=== PATIENT | male | born 2000 | race Caucasian/White ===

== ENCOUNTER 2019-01-25 17:15 | Inpatient (IN) | payer OTHER ==
[2019-01-25] MEDS ORDERED: Nicotine Inhaler* 10 MG AMP INH PRN (17:35)
--- NOTE | 2019-01-25 17:49 | ED ---
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 Pt says he saw a counselor and psychiatrist today. He has had previous suicide attempt ( by ropahmet). He is a [employer] student, majoring in [employer]. Denies PMHx other than depression. He is not on medications for depression. - History Of Current Complaint Chief Complaint: EDSuicidal Time Seen by Provider: 01/25/19 17:35 Hx Obtained From: Patient Onset/Duration: Still Present Timing: Constant Severity Initially: Moderate Severity Currently: Moderate Character: Depressed Related History: Positive For: Prior Psychiatric Issues Has Suicidal: Reports: Thoughts. Denies: With A Plan - Allergies/Home Medications Allergies/Adverse Reactions: Allergies Allergy/AdvReac Type Severity Reaction Status Date / Time No Known Allergies Allergy Verified 01/25/19 17:27 Home Medications: Home Medications NK [No Home Medications Reported] 01/25/19 [History Confirmed 01/25/19] PMH/Surg Hx/FS Hx/Imm Hx Previously Healthy: No Endocrine/Hematology History: Denies: Hx Diabetes Sensory History: Denies: Hx Legally Blind Neurological History: Denies: Hx Dementia Psychiatric History: Reports: Hx Depression Infectious Disease History: No Infectious Disease History: Reports: Traveled Outside the [place] in Last 30 Days - Social History Occupation: Student Lives: With Family Alcohol Use: None Hx Substance Use: No Substance Use Type: Reports: None Hx Tobacco Use: No Smoking Status (MU): Never Smoked Tobacco Review of Systems Negative: Fever Negative: Cough Psychological: Other - pos: SI without plan All Other Systems Reviewed And Are Negative: Yes Physical Exam - Summary Physical Exam Summary: GENERAL: Patient is a well-developed and nourished MALE who is lying comfortable in the stretcher. Patient is not in any acute respiratory distress. HEAD AND FACE: Normocephalic EYES: PERRLA, EOMI x 2. EARS: Hearing grossly intact. MOUTH: Oropharynx within normal limits. NECK: Supple, trachea is midline, no adenopathy, no JVD, no carotid bruit. CHEST: Symmetric, no tenderness at palpation LUNGS: Clear to auscultation bilaterally. No wheezing or crackles. CVS: Regular rate and rhythm, S1 and S2 present, no murmurs or gallops appreciated. ABDOMEN: Soft, non-tender. Bowel sounds are normal. No abdominal abnormal pulsations. EXTREMITIES: Full ROM in all major joints, no edema, no cyanosis or clubbing. NEURO: Alert and oriented x 3. No acute neurological deficits. Speech is normal and follows commands. SKIN: Dry and warm PSYCH: Suicidal. Triage Information Reviewed: Yes Vital Signs On Initial Exam: Initial Vitals Temp Pulse Resp BP Pulse Ox 97.6 F 65 18 124/70 100 01/25/19 17:21 01/25/19 17:21 01/25/19 17:21 01/25/19 17:21 01/25/19 17:21 Vital Signs Reviewed: Yes Diagnostics - Vital Signs Vital Signs Temp Pulse Resp BP Pulse Ox 01/25/19 17:21 97.6 F 65 18 124/70 100 - Laboratory Result Diagrams: 01/25/19 17:56 01/25/19 17:56 Lab Statement: Any lab studies that have been ordered have been reviewed, and results considered in the medical decision making process. 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 Pt says he saw a counselor and psychiatrist today. Pt is medically clear for MHE at 1900. 2007 : Per registered nurse nursery: Pt will be involuntarily admitted, per Dr. Lai, psych. Dx : unspecified depression. - Differential Dx/Clinical Impression Provider Diagnosis: Depression Discharge - Sign-Out/Discharge Documenting (check all that apply): Patient Departure - BHU ADMIT Patient Received Moderate/Deep Sedation with Procedure: No - Discharge Plan Condition: Stable Disposition: [place]CHIATRIC [place]AC[place] [place]illing Disposition and Condition Condition: STABLE Disposition: Psychiatric Facility [facility] [place] - Attestation Statements Document Initiated by Scribe: Yes Documenting Scribe: Ondina Diaz Provider For Whom Scribe is Documenting (Include Credential): Dr. Sascha Sorenson MD Scribe Attestation: Ondina Ann, scribed for Dr. Sascha Sorenson MD on 01/25/19 at 2128. Scribe Documentation Reviewed: Yes Provider Attestation: The documentation as recorded by the Ondina bolanos accurately reflects the service I personally performed and the decisions made by me, Dr. Sascha Sorenson MD Status of Scribe Document: Viewed
[2019-01-25 18:05] LABS: ABS Basophils 0 10^3/ul (0-0.2); ABS Eosinophils 0.1 10^3/ul (0-0.6); ABS Lymphocytes 1.6 10^3/ul (1.0-4.8); ABS Monocytes 0.4 10^3/ul (0-0.8); ABS Neutrophils 2.4 10^3/ul (1.5-7.7); ABS Nucleated RBC 0 10^3/ul; Eosinophil % 1.4 %; Hematocrit 41 % (36-46); Hemoglobin 14.4 g/dL (14.0-18.0); Lymphocyte % 36.2 %; Mean Corpuscular HGB Conc 35 g/dL (31-36); Mean Corpuscular Hemoglobin 31 pg (27-31); Mean Corpuscular Volume 89 fL (80-94); Mean Platelet Volume 7.9 fL (7.4-10.4); Nucleated Red Blood Cells % 0.1; Platelet Count 212 10^3/uL (150-450); Red Blood Count 4.64 10^6 /uL (4.18-5.48); Red Cell Distribution Width 13 % (10.5-15); White Blood Count 4.5 10^3/uL (3.5-10.8)
[2019-01-25 18:22] LABS: ALT 12 U/L (7-52); AST 16 U/L (13-39); Albumin/Globulin Ratio 2.3 (1-3); Alkaline Phosphatase 72 U/L (34-104); Anion Gap 6 mmol/L (2-11); BUN/Creatinine Ratio 22.7 (8-20); Blood Urea Nitrogen 17 mg/dL (6-24); CO2 Carbon Dioxide 28 mmol/L (22-32); Calcium 9.7 mg/dL (8.6-10.3); Chloride 105 mmol/L (101-111); EGFR African American 159.1 (>60); EGFR Non-African American 131.5 (>60); Globulin 2.2 g/dL (2-4); Glucose 93 mg/dL (70-100); Potassium 3.9 mmol/L (3.5-5.0); Sodium 139 mmol/L (135-145); Total Protein 7.2 g/dL (6.4-8.9)
[2019-01-25 18:31] LABS: Alcohol < 10 mg/dL (<10); Salicylate < 2.50 mg/dL (<30)
[2019-01-25 18:39] LABS: Urine Appearance Clear; Urine Bilirubin Negative (Negative); Urine Blood Negative (Negative); Urine Color Yellow; Urine Glucose Negative (Negative); Urine Ketones Negative (Negative); Urine Nitrite Negative (Negative); Urine Protein Negative (Negative); Urine Specific Gravity 1.027 (1.010-1.030); Urine Urobilinogen Negative (Negative)
[2019-01-25 18:46] LABS: TSH (Thyroid Stimulating Horm) 2.35 mcIU/mL (0.34-5.60)
[2019-01-25 18:52] LABS: Acetaminophen < 15 mcg/mL
[2019-01-25 18:55] LABS: Barbiturates Urine Screen None Detected (None Detect); Benzodiazepine Urine Screen None Detected (None Detect); Urine Cannabinoids Screen None Detected (None Detect)
[2019-01-25] MEDS ORDERED: diPHENhydraMINE PO* 50 MG PO PRN (22:19)
[2019-01-25] MEDS ORDERED: Acetaminophen TAB* 325 MG PO PRN (22:19)
[2019-01-25] MEDS ORDERED: Al Hydrox/Mg Hydrox/Simet LIQ* 30 ML UDC PO PRN (22:20)
[2019-01-25] MEDS ORDERED: Mouth Piece, Nicotine* 1 EACH CARTRIDGE INH PRN (22:20)
--- NOTE | 2019-01-26 11:42 | HP ---
H&P (Free Text) History and Physical: Justification for admission: Immediate Safety. CC " I dont know why I am here" The patient was brought to [facility] on the recommendation of his school counselor at [employer]. Patient reported that he went to [facility] counseler and said he was feeling down lately when they questioned him about suicide he said he had a knife and couldnt not promise one way or the other if he was suicidal. He said this was a misunderstanding and that he could not commit to answer about being suicidal or not. Recent stressors include examinations coming up for school and thinking about changing major to business. He reported feeling depressed for the last 2 weeks. Per staff report he had a suicidal plan to jump off [place] or kill himself with a knife. He said that he is upset that he had to come to the hospital. He has not received medications since 2017 were he stopped taking Effexor and experienced nausea and vomiting. He denied access to firearms or stockpiles of medications. He reports getting less sleep lately and having a diminished appetite. The patient denied homicidal ideation intent or plan. The patient denied auditory and/ or visual hallucinations. MDD He reported feeling depressed or having diminished interest in hobbies or interests which were present in the past , for most of the time, lasting more than 2 weeks. Denied having crying spells , feeling empty inside, feelings of hopelessness or worthless. He reported unintentional weight loss or appetite. He reported interruption of sleep or feeling tired throughout the day. He reported loss of energy or lack of motivation to complete tasks. He has decreased concentration. Bipolar Denied symptoms of edgar such as having many ideas at once. Denied increased talkativeness where no one can interrupt. Denied feeling irritable most of the time while having an persistent abundance of energy most of the day without the use of energy drinks, stimulants, or recreational drug use. Denied an increase in intensity in goal directed activities. Denied having the decreased need to sleep for days , having prolonged elevated heighted mood , or feeling on top of the world. Denied impulsive risky sexual encounters. Denied spending money recklessly , going on spending sprees wiping out savings. Denied impulsively traveling out of town or country, having super aranda, and unrealistic wealth or fame. Anxiety Denied having symptoms of anxiety such as having times where heart feels that it is beating out of chest , sweaty palms, or shallow breathing. Denied having uncomfortable or intrusive thoughts. Denied feeling restless, high strung, or worrying too much most of the time. Psychosis Does not endorse hearing things that other people do not hear or seeing things other people do not see. Denied feeling that TV is making references. Denied feeling that people are spying , following , or reading their thoughts. Phobias: Patient denied having excessive fear of a particular thing or situation. Eating disorders: Patient denied having excessive eating habits or feelings of guilt after eating. Denied repeated episodes of self induced vomiting after eating. PTSD Denied flashbacks, nightmares and avoidance of a prior traumatic event. PAST PSYCHIATRIC HISTORY: Prior Diagnosis : Major depressive disorder. Had 2 depressive episodes one in 2016 and one in 2017 treated for 2-3 months and discontinued treatment per recommendation of his doctor at the time. History of past Psychiatric Hospitalizations: No prior psychiatric admission. History of past suicide/homicide attempts : 2 past suicide attempts in 2016 by hanging self with rope that broke and cutting his wrist. Denied past homicidal incidents. Outpatient follow-up: CAPS program at [place] Medications: Past trials of medications include Effexor 75mg BID in 2017 and he abruptly discontinued causing nausea and vomiting which he treated on the medical floor in the hospital FAMILY HISTORY: - Suicide: Denied family history of suicide. - Mental illness: Depression of mother and sister. His sister takes anxiety medications that he is unable to recall. family members. - Substance abuse: Denied substance abuse among family members. SUBSTANCE ABUSE HISTORY: Denied using alcohol, tobacco, heroin and cocaine other illicit substances. Denied abusing pills not prescribed . Denied past Substance abuse treatment. SOCIAL HISTORY: He is single , never no children. He has one brother and one sister and is the middle child. He grew up [place] [facility] [facility]. He describes his childhood as " Good". Denied past physical and or sexual abuse. 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 He is [employer] and engages with protestant orthodox missions. - Legal history: Denied - service history: Denied PAST MEDICAL HISTORY: Denied heart disease, diabetes, cancer and/ or other medical conditions. - Allergies: Denied drug allergies. Physical Exam: Please see ED note Mental Status Exam on Admission APPEARANCE : 19 year old male who appears stated age. Patient is not malodourous, and appears to have fair hygiene and grooming. BEHAVIOR: Cooperative , calm EYE CONTACT: Fair PSYCHOMOTOR ACTIVITY: No psychomotor agitation or retardation. MOVEMENTS: No abnormal movements observed. SPEECH : Normal rate, rhythm, volume and tone. MOOD : " okay" AFFECT : Blunted THOUGHT PROCESS: formulated and organized in a logical, linear goal directed manner. No flight of ideas , neologism (made up words) , perseveration , tangential , loose associations , or circumstantiality. THOUGHT CONTENT: no delusions, preoccupations, obsessions, phobias or preoccupations. PERCEPTION: No current auditory or visual hallucinations. Doesnt appear to be responding to internal cues. No evidence of depersonalization , de-realization, or illusions SUICIDALITY Recent suicidal ideation plan. HOMICIDALITY Denied homicidal ideation, intent or plan. Insight/judgment: Fair insight and judgment ORIENTATION: Oriented to self, location, and time. Diagnosis on Admission: Major Depressive Disorder, severe. Assessment: 19 year old male with history of MDD came to the hospital and was admitted to the BSU at [facility] after endorsing suicidal ideation to counselor at school. Plan #Admit to BSU, Initially given Q15 and later changed to Q30 minute observation with staff pass and computer privileges. Start regular diet. Encourage participation in activities on the milieu. #Patient evaluated in ED and was determined by the emergency room Physician to be medically stable for admission to the BSU. # Justification for Admission: For immediate safety per outlined in the [place] Mental Hygiene Code. # 9.39 The patient requires inpatient admission at this time to assure safety, receive treatment and work toward stabilization. # Labs ordered: CBC, CMP, UDS, TSH, HBA1c, TSH, Toxicology screen, Urine analysis, and lipid profile. # Obtain collateral information once release is signed. # Collaboration with Social Work. #Start Lexapro 10mg PO daily Tentative discharge Tuesday. #Goals before discharge include: Improvement of depression and eradication of suicidal ideation The risks, benefits, and alternative treatment options were discussed as well as of the risks of refusing treatment. After this discussion and an acknowledgement of this understanding was made. A risk/ benefit assessment of treatment was considered and discussed with the patient. When comparing the risks of treatment with the dangers of not receiving treatment, the benefits of treatment outweigh the treatment risks at this time. Risks of suicidal ideation , behavioral changes, movement disorders, cardiac conduction changes, serotonin syndrome, metabolic risks were among some of the risks discussed. Sodium 139 mmol/L (135-145) 01/25/19 17:56 Potassium 3.9 mmol/L (3.5-5.0) 01/25/19 17:56 BUN 17 mg/dL (6-24) 01/25/19 17:56 Creatinine 0.75 mg/dL (0.67-1.17) 01/25/19 17:56 Calcium 9.7 mg/dL (8.6-10.3) 01/25/19 17:56 AST 16 U/L (13-39) 01/25/19 17:56 ALT 12 U/L (7-52) 01/25/19 17:56 Vital Signs Temp Pulse Resp BP Pulse Ox 97.9 F 75 16 123/64 96 01/25/19 21:57 01/25/19 21:57 01/26/19 11:52 01/25/19 21:57 01/25/19 21:57
[2019-01-26] MEDS: Multivitamins/Minerals TAB PO SCH (12:34)
[2019-01-26] MEDS: Escitalopram * 10 MG TAB PO SCH (12:34)
[2019-01-27 08:37] LABS: HDL Cholesterol 54.5 mg/dL
[2019-01-27] MEDS: Multivitamins/Minerals TAB PO SCH (09:18)
[2019-01-27] MEDS: Escitalopram * 10 MG TAB PO SCH (09:18)
[2019-01-27] MEDS: DOXYCYCLINE 50 MG PO SCH (23:03)
[2019-01-27] MEDS: [UNRECOGNIZED DRUG - OTHER] TOPICAL SCH (23:05)
[2019-01-27] MEDS: BENZOYL PEROXIDE TOPICAL SCH (23:05)
[2019-01-27] MEDS: ADAPALENE TOPICAL SCH (23:05)
[2019-01-28] MEDS: Escitalopram * 10 MG TAB PO SCH (08:55)
[2019-01-28] MEDS: DOXYCYCLINE 50 MG PO SCH (08:55)
[2019-01-28] MEDS: Multivitamins/Minerals TAB PO SCH (08:57)
[2019-01-28] MEDS: ADAPALENE TOPICAL SCH ×2 (17:48→21:41)
[2019-01-28] MEDS: [UNRECOGNIZED DRUG - OTHER] TOPICAL SCH ×2 (17:48→21:41)
[2019-01-28] MEDS: BENZOYL PEROXIDE TOPICAL SCH ×2 (17:48→21:41)
--- NOTE | 2019-01-28 18:52 | PN ---
Subjective - Subjective Date of Service: 01/28/19 Service Type: 40806 Hosp care 15 min low complexity Subjective: Dagoberto has been doing well and denied any problems with his mood, thoughts or perception. His parents are on the unit and has many relevant questions and would like him to be discharged on MON. Denies SI or HI today. Objective - General Observations Appearance: Well Groomed Appears Stated Age: Yes Stature: WNL Posture: WNL Eye Contact: Average Behavior/Activity: WNL - Interaction Observations Attitude Towards Examiner: Cooperative Stated Mood: Euthymic Affect: Full Speech Pattern/Tone: Clear Thought Process: Coherent, Goal Directed Perception: WNL Thought Content: WNL Hallucination Type: None Delusion Type: None Assessment - Assessment Merits Inpatient Hospitalization: Consolidate Improvements, Pending Safe DC Plan Clinical Impression: Improved significantly. Plan - Plan Treatment Plan: Name: DAGOBERTO SANTIAGO Birthdate: 2000 [id number] Continued Medication Management: Continue Outpt Medication Medications: Current Medications Acetaminophen (Tylenol Tab*) 650 mg PO Q4H PRN PRN Reason: PAIN; OR TEMP >101 Al Hydrox/Mg Hydrox/Simethicone (Maalox Plus*) 30 ml PO Q4H PRN PRN Reason: INDIGESTION Device (Nicotine Mouth Piece*) 1 each INH .USE W/ CARTRIDGE PRN PRN Reason: WITHDRAWAL - NICOTINE Diphenhydramine HCl (Benadryl Po*) 50 mg PO Q6H PRN PRN Reason: .ANXIETY/INSOMNIA Last Admin: 01/26/19 02:15 Dose: 50 mg Doxycycline Monohydrate (Doxycycline Tab (Nf)) 50 mg PO DAILY [facility] Last Admin: 01/28/19 08:55 Dose: 50 mg Escitalopram Oxalate (Lexapro *) 10 mg PO DAILY [facility] Last Admin: 01/28/19 08:55 Dose: 10 mg Multivitamins/Minerals (Theragran/Minerals Tab*) 1 tab PO DAILY [facility] Last Admin: 01/28/19 08:57 Dose: Not Given Nicotine (Nicotine Inhaler*) 10 mg INH Q2H PRN PRN Reason: CRAVING Pto - Epiduo ( Adapalene And Benzoyl Peroxide Gel 0.3%/2.5%) 1 dose TOPICAL BEDTIME [facility] Last Admin: 01/28/19 17:48 Dose: 1 dose - Discharge Plan Discharge Plan: Outpatient Follow Up Outpatient Program: Counseling[facility] Services at [place]
[2019-01-29 08:38] VITALS: BP 121/65
[2019-01-29] MEDS: DOXYCYCLINE 50 MG PO SCH (08:52)
[2019-01-29] MEDS: Multivitamins/Minerals TAB PO SCH (08:52)
[2019-01-29] MEDS: Escitalopram * 10 MG TAB PO SCH (08:52)
--- NOTE | 2019-01-29 10:34 | DS ---
Subjective - Subjective Service Types: 74[address] [facility] Day Mgmt complex over 30 min Discharge Date: 01/29/19 Subjective: CC: "I feel better" Patient reported looking forward to returning to school and playing soccer. Meeting before discharge took place. He told his parents that he made a attempt to end his life during senior year of high school. His parents asked about the possibilbity of bipolar diagnosis and it was explained that it is a possibility but without a manic episode is unlikely at this time. Safety plan was discussed. Abbie, his social staff worker was present and spoke about importance of communication with his family, self awareness, as well as the coordination of care in the outpatient setting. Justification for admission: Immediate Safety. CC " I dont know why I am here" The patient was brought to [facility] on the recommendation of his school counselor at [employer]. Patient reported that he went to [facility] counselor and said he was feeling down lately when they questioned him about suicide he said he had a knife and couldnt not promise one way or the other if he was suicidal. He said this was a misunderstanding and that he could not commit to answer about being suicidal or not. Recent stressors include examinations coming up for school and thinking about changing major to business. He reported feeling depressed for the last 2 weeks. Per staff report he had a suicidal plan to jump off [place] or kill himself with a knife. He said that he is upset that he had to come to the hospital. He has not received medications since 2016 were he stopped taking Effexor and experienced nausea and vomiting. He denied access to firearms or stockpiles of medications. He reports getting less sleep lately and having a diminished appetite. The patient denied homicidal ideation intent or plan. The patient denied auditory and/ or visual hallucinations. MDD He reported feeling depressed or having diminished interest in hobbies or interests which were present in the past , for most of the time, lasting more than 2 weeks. Denied having crying spells , feeling empty inside, feelings of hopelessness or worthless. He reported unintentional weight loss or appetite. He reported interruption of sleep or feeling tired throughout the day. He reported loss of energy or lack of motivation to complete tasks. He has decreased concentration. Bipolar Denied symptoms of edgar such as having many ideas at once. Denied increased talkativeness where no one can interrupt. Denied feeling irritable most of the time while having an persistent abundance of energy most of the day without the use of energy drinks, stimulants, or recreational drug use. Denied an increase in intensity in goal directed activities. Denied having the decreased need to sleep for days , having prolonged elevated heighted mood , or feeling on top of the world. Denied impulsive risky sexual encounters. Denied spending money recklessly , going on spending sprees wiping out savings. Denied impulsively traveling out of town or country, having super aranda, and unrealistic wealth or fame. Anxiety Denied having symptoms of anxiety such as having times where heart feels that it is beating out of chest , sweaty palms, or shallow breathing. Denied having uncomfortable or intrusive thoughts. Denied feeling restless, high strung, or worrying too much most of the time. Psychosis Does not endorse hearing things that other people do not hear or seeing things other people do not see. Denied feeling that TV is making references. Denied feeling that people are spying , following , or reading their thoughts. Phobias: Patient denied having excessive fear of a particular thing or situation. Eating disorders: Patient denied having excessive eating habits or feelings of guilt after eating. Denied repeated episodes of self induced vomiting after eating. PTSD Denied flashbacks, nightmares and avoidance of a prior traumatic event. PAST PSYCHIATRIC HISTORY: Prior Diagnosis : Major depressive disorder. Had 2 depressive episodes one in 2016 and one in 2017 treated for 2-3 months and discontinued treatment per recommendation of his doctor at the time. History of past Psychiatric Hospitalizations: No prior psychiatric admission. History of past suicide/homicide attempts : 2 past suicide attempts in 2016 by hanging self with rope that broke and cutting his wrist. Denied past homicidal incidents. Outpatient follow-up: CAPS program at [employer] Medications: Past trials of medications include Effexor 75mg BID in 2017 and he abruptly discontinued causing nausea and vomiting which he treated on the medical floor in the hospital FAMILY HISTORY: - Suicide: Denied family history of suicide. - Mental illness: Depression of mother and sister. His sister takes anxiety medications that he is unable to recall. family members. Correction Mother has history of bipolar disorder. - Substance abuse: Denied substance abuse among family members. SUBSTANCE ABUSE HISTORY: Denied using alcohol, tobacco, heroin and cocaine other illicit substances. Denied abusing pills not prescribed . Denied past Substance abuse treatment. SOCIAL HISTORY: He is single , never no children. He has one brother and one sister and is the middle child. He grew [place] [facility] [place] [facility]. He describes his childhood as " Good". Denied past physical and or sexual abuse. 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 He is Caodaism and engages with jainism restoration missions. - Legal history: Denied - service history: Denied PAST MEDICAL HISTORY: Denied heart disease, diabetes, cancer and/ or other medical conditions. - Allergies: Denied drug allergies. Physical Exam: Please see ED note Mental Status Exam on Admission APPEARANCE : 19 year old male who appears stated age. Patient is not malodourous, and appears to have fair hygiene and grooming. BEHAVIOR: Cooperative , calm EYE CONTACT: Fair PSYCHOMOTOR ACTIVITY: No psychomotor agitation or retardation. MOVEMENTS: No abnormal movements observed. SPEECH : Normal rate, rhythm, volume and tone. MOOD : " okay" AFFECT : Blunted THOUGHT PROCESS: formulated and organized in a logical, linear goal directed manner. No flight of ideas , neologism (made up words) , perseveration , tangential , loose associations , or circumstantiality. THOUGHT CONTENT: no delusions, preoccupations, obsessions, phobias or preoccupations. PERCEPTION: No current auditory or visual hallucinations. Doesnt appear to be responding to internal cues. No evidence of depersonalization , de-realization, or illusions SUICIDALITY Recent suicidal ideation plan. HOMICIDALITY Denied homicidal ideation, intent or plan. Insight/judgment: Fair insight and judgment ORIENTATION: Oriented to self, location, and time. Diagnosis on Admission: Major Depressive Disorder, severe. Assessment: 19 year old male with history of MDD came to the hospital and was admitted to the [facility] at [facility] after endorsing suicidal ideation to counselor at school. Diagnosis on Discharge: Major Depressive Disorder, partial remission. Condition at the time of discharge: At the time of discharge patient showed improvement of sleep and appetite. The patient was not a danger to self or others. The patient denied suicidal ideation , intent or plan. The patient denied homicidal targets, ideation, intent or plan. This patient participated in psychosocial rehabilitation and gained some insight into problems. The patient gained insight into mental illness, triggers, and treatment. The patient took medication as prescribed. The patient denied side effects of medication and objective signs of side effects were not evident. Therapy Resources were offered to the patient. Patient was given a supply of prescriptions at the time of discharge. The patient plans to attend follow up care with the follow up arrangements that were discussed and put in place. Patient was asked to keep appointments as scheduled, take medication as prescribed, have routine follow up care with their primary care physician and refrain from any use of alcohol or drugs. Objective - Appearance Dysmorphic Features: No Hygiene: Normal Grooming: Well Kept - Behavior Psychomotor Activities: Normal Exhibits Abnormal Movement: No - Attitude and Relatedness Attitude and Relatedness: Cooperative Eye Contact: Good - Speech Quality: Unpressured Latencies: Normal Quantity: Appropriate - Mood Patient's Decription of Mood: "Fine" - Affect Observed Affect: Labile Affect Consistent with: Euthymia - Thought Process Patient's Thought Process: Coherent Thought Content: No Passive Wish, No Suicidal Planning, No Homicidal Ideation, No Paranoid Ideation - Sensorium Experiencing Hallucinations: No, Sensorium is Clear Type of Hallucinations: Visual: No, Auditory: No, Command: No - Level of Consciousness Level of Consciousness: Alert Orientation: Yes Intact, Yes Orientated to Time, Yes Orientated to Place, Yes Orientated to Person - Impulse Control Impulse Control: Intact - Insight and Judgement Insight and Judgement: Good - Group Participation Particating in Group Activities: Yes - Medication Management Medication Management Adherence: Yes Treatment Course & Assessment Clinical Course & Impression: Hospital course part A: 19 year old with a history of depression presented to the BSU with suicidal ideation Hospital course part B: Labs ordered included CBC, CMP, UDS, TSH, HBA1c, TSH, Toxicology screen, Urine analysis, and lipid profile. Labs were reviewed and did not require the need for further evaluation. Vital signs were monitored during the course of admission. The patient was admitted to the adult behavioral unit and placed on 15 minute check for safety. At a later time the patient was on Q30 minute observation and staff pass privileges. With those limits being extended , there were no occurrence of behavioral incidents. The patient did well on the unit and went to groups. Interacted with peers had adequate sleep and regular appetite. Tolerated medication changes without side effects. Group therapy and services were offered. The risks, benefits, and alternative treatment options were discussed as well as of the risks of refusing treatment. Treatment associated risks discussed . After this discussion and made an acknowledgement of this understanding. Follow up care appointments were put in place for follow up care within 7 days of discharge. Patient presents with a broader range of affect, and the absence of depressed mood, delusions, perceptual disturbances and or suicidal ideation. Overall, the patient responded well to inpatient treatment as evidenced by their report of strengthening of coping mechanisms , reduced distress, and more positive outlook on circumstances. Of note there was an improvement of suicidal ideation and the patient expressed readiness for discharge home. Safety precautions were put in place which included involving family to closely monitor for changes in mental state. In addition, implementing follow up care, and did not require removing/securing firearms, weapons and stockpile of medications due to not having access. Family and patient instructed to immediately call 911 should any safety concerns arise. Upon learning that he was not being discharged on Tuesday patient became guarded and was unable to engage in a meaningful way. Over the course of the weekend the patient was able to have the ability for self observation and talk openly about the events leading up to coming to the hospital. He was able to talk about these things with his parents and acknowledge that he will speak about how he is doing in the future. Release was signed and patients counselor was contacted at [place]. The patient was advised of the 24 hour / 7 days a week availability of the emergency room and to call 911 in the event of becoming suicidal and/ or homicidal and for all other emergencies. The patient was informed of the contact information for [facility] Behavioral Services Unit, [facility] Prevention [facility] Crisis [facility], National Suicide Prevention Lifeline, [facility], Alcoholics Anonymous, and [facility]. Medications started included lexapro 10mg daily. He did not have side effects from treatment and showed positive clinical response. Family meeting took place before discharge and his parents picked him up from the unit. Patient will be discharged to his apartment at [employer]. Follow up appointments will take place at [facility]. Improvements in patient from the time of admission include: Improved affect, sleep and decrease in anxiety. No longer suicidal and no longer having feelings of hopelessness. Risk factors: Age, single, history of mental illness. History of suicide attempt. Protective factors: Currently no suicidal ideation, intent or plan. Has strong support system. No history of service. Currently no feelings of hopelessness, not in an occupation of social isolation, doesnt have multiple medical conditions, no family history of suicide, doesnt have access to firearms. Doesnt have command hallucinations and or psychotic features at this time. No history of substance abuse. No history of alcohol abuse. Not a anniversary of a loss of a loved one. No changes in relationship status, housing, job, or school. Currently future orientated. Patient engaged in treatment and compliant with medication. Sodium 139 mmol/L (135-145) 01/25/19 17:56 Potassium 3.9 mmol/L (3.5-5.0) 01/25/19 17:56 BUN 17 mg/dL (6-24) 01/25/19 17:56 Creatinine 0.75 mg/dL (0.67-1.17) 01/25/19 17:56 Hemoglobin A1c 5.0 % (4.0-5.6) 01/27/19 07:57 Calcium 9.7 mg/dL (8.6-10.3) 01/25/19 17:56 AST 16 U/L (13-39) 01/25/19 17:56 ALT 12 U/L (7-52) 01/25/19 17:56 Triglycerides 69 mg/dL 01/27/19 07:57 Cholesterol 173 mg/dL 01/27/19 07:57 LDL Cholesterol 105 mg/dL 01/27/19 07:57 Vital Signs Temp Pulse Resp BP Pulse Ox 97.2 F 50 16 121/65 100 01/29/19 08:00 01/29/19 08:00 01/29/19 08:00 01/29/19 08:00 01/29/19 08:00 Merits Inpatient Hospitalization: No Clear for Discharge: Adequate Clinical Respons Discharge Planning - Discharge Planning Discharge Plan: Outpatient Follow Up Outpatient Program: Counseling/Psych Services at [place] Recommendations for Continuing Care: Medication Management Medications: Current Medications Acetaminophen (Tylenol Tab*) 650 mg PO Q4H PRN PRN Reason: PAIN; OR TEMP >101 Al Hydrox/Mg Hydrox/Simethicone (Maalox Plus*) 30 ml PO Q4H PRN PRN Reason: INDIGESTION Device (Nicotine Mouth Piece*) 1 each INH .USE W/ CARTRIDGE PRN PRN Reason: WITHDRAWAL - NICOTINE Diphenhydramine HCl (Benadryl Po*) 50 mg PO Q6H PRN PRN Reason: .ANXIETY/INSOMNIA Last Admin: 01/26/19 02:15 Dose: 50 mg Doxycycline Monohydrate (Doxycycline Tab (Nf)) 50 mg PO DAILY [facility] Last Admin: 01/29/19 08:52 Dose: 50 mg Escitalopram Oxalate (Lexapro *) 10 mg PO DAILY [facility] Last Admin: 01/29/19 08:52 Dose: 10 mg Multivitamins/Minerals (Theragran/Minerals Tab*) 1 tab PO DAILY [facility] Last Admin: 01/29/19 08:52 Dose: Not Given Nicotine (Nicotine Inhaler*) 10 mg INH Q2H PRN PRN Reason: CRAVING Pto - Epiduo ( Adapalene And Benzoyl Peroxide Gel 0.3%/2.5%) 1 dose TOPICAL BEDTIME [facility] Last Admin: 01/28/19 21:41 Dose: Not Given Discharge Planning: Prescriptions provided for discharge [x] Yes [] No Follow up care details as per social work arrangements. Patient response to discharge plan: [x] eager for discharge [] agreeable with discharge plan [] ambivalent about discharge [] disagrees with discharge today
== END 2019-01-29 11:45 | disposition home or self-care (01) | DRG 885 ==
LOC: ED 17:15 → BSU 21:18
PROVIDERS: ADMIT Psychiatry & Neurology Psychiatry; ATTEND Psychiatry & Neurology Psychiatry
DX: F32.2 Major depressive disorder, single episode, severe without psychotic features (principal); R45.851 Suicidal ideations; Z81.8 Family history of other mental and behavioral disorders; Z91.5 Personal history of self-harm
CPT/HCPCS: 36415; 80053; 80061; 80307; 80320; 80329; 81003; 83036; 84443; 85025; 99222; 99231; 99238; 99284; A9270-GY; G0480